=== PATIENT | male | born 1995 | race Caucasian/White ===

== ENCOUNTER 2017-04-12 13:49 | Emergency (ER) | payer BC, OTHER ==
[2017-04-12 14:07] VITALS: RESP 18
[2017-04-12 15:13] LABS: Appearance,Urine Clear (Clear); Bilirubin,Urine Negative (Negative); Glucose,Urine (UA) Negative (Negative); Ketones,Urine Negative (Negative); Leukocyte Esterase,Urine Negative (Negative); Nitrite,Urine Negative (Negative); PH, Urine 6.5 (5.0-8.0); Protein,Urine Negative (Negative); Specific Gravity,Urine 1.014 (1.001-1.035); UA Billing (MACRO vs. MICRO) CHEM; Urobilinogen,Urine <2.0 mg/dL (<2.0)
[2017-04-12] MEDS ORDERED: KETOROLAC 30 MG/ML 1 ML VIAL IM STA (15:23)
--- NOTE | 2017-04-12 15:23 | ED ---
General Adult HPI - General Chief complaint: Urogenital Stated complaint: Male /with Back Pain Time Seen by Provider: 04/12/17 15:06 Source: patient, RN notes reviewed Mode of arrival: ambulatory Limitations: no limitations - History of Present Illness Initial comments: 21-year-old male presents for evaluation of scrotal pain and low back pain. Patient denies any specific injury, he has been doing smoker the house with some moderate heavy lifting. Does not recall a specific injury. Pain is at the base of the scrotum. Bilateral. No complaints of right or left testicular pain specifically. He does have history of a varicocele requiring operation. Patient's low back pain is associated with scrotal pain. They come together and are worse with bending. No fever or chills. No discharge. No history of hernia. His last bowel movement was this morning and was normal. - Related Data Previous Rx's Medication Instructions Recorded Ibuprofen [Motrin] 600 mg PO Q8HR PRN #24 tab 04/12/17 Allergies Allergy/AdvReac Type Severity Reaction Status Date / Time No Known Allergies Allergy Verified 04/12/17 14:57 Review of Systems ROS Statement: Those systems with pertinent positive or pertinent negative responses have been documented in the HPI. ROS Other: All systems not noted in ROS Statement are negative. Past Medical History Past Medical History: No Reported History Additional Past Medical History / Comment(s): pleuresy History of Any Multi-Drug Resistant Organisms: None Reported Past Surgical History: No Surgical Hx Reported Additional Past Surgical History / Comment(s): testicular vericose vein removal Past Psychological History: No Psychological Hx Reported Smoking Status: Current every day smoker Past Alcohol Use History: Occasional Past Drug Use History: None Reported, Marijuana General Exam Limitations: no limitations General appearance: alert, in no apparent distress Head exam: Present: atraumatic, normocephalic Eye exam: Present: normal appearance, PERRL ENT exam: Present: normal exam Neck exam: Present: normal inspection. Absent: tenderness, meningismus Respiratory exam: Present: normal lung sounds bilaterally, respiratory distress Cardiovascular Exam: Present: regular rate, normal rhythm GI/Abdominal exam: Present: soft, hernia. Absent: distended, tenderness exam: Present: normal inspection. Absent: testicular tenderness, urethral discharge, scrotal swelling Extremities exam: Present: normal inspection, full ROM. Absent: tenderness Back exam: Present: normal inspection, paraspinal tenderness (Lumbosacral). Absent: muscle spasm, vertebral tenderness Neurological exam: Present: alert, oriented X3, motor sensory deficit. Absent: CN II-XII intact Psychiatric exam: Present: normal affect, normal mood Skin exam: Present: warm, dry, intact. Absent: cyanosis, diaphoretic Course Vital Signs 04/12/17 14:03 Temperature 97.4 F L Pulse Rate 74 Respiratory 18 Rate Blood Pressure 131/90 O2 Sat by Pulse 99 Oximetry Medical Decision Making - Medical Decision Making 21-year-old male with low back pain, pelvic floor pain and scrotal pain. Exam shows no findings to support patient's chief complaint. Testicle exam is unremarkable. No midline bony tenderness in the lumbosacral region. Normal gait. Normal neurologic exam. Ultrasound is obtained given the patient's history of varicocele. This is negative for enlarging varicocele, improved from previous study, no testicular inflammation or inflammation of the epididymis, no torsion. X-ray lumbosacral spine is within normal limits. Patient's symptoms likely related to pelvic floor sprain and strain. Patient will follow-up with primary care physician return to emergency department with worsening symptoms. - Lab Data Lab Results 04/12/17 Range/Units 14:51 Urine Color Yellow Urine Appearance Clear (Clear) Urine pH 6.5 (5.0-8.0) Ur Specific [place] 1.014 (1.001-1.035) Urine Protein Negative (Negative) Urine Glucose (UA) Negative (Negative) Urine Ketones Negative (Negative) Urine Blood Negative (Negative) Urine Nitrite Negative (Negative) Urine Bilirubin Negative (Negative) Urine Urobilinogen <2.0 (<2.0) mg/dL Ur Leukocyte Esterase Negative (Negative) Disposition Clinical Impression: Strain of muscle of pelvis Disposition: HOME SELF-CARE Condition: Good Instructions: Muscle Strain (ED), Groin Strain (ED) Prescriptions: Ibuprofen [Motrin] 600 mg PO Q8HR PRN #24 tab PRN Reason: Pain Referrals: Yanira Gilliam DO [Primary Care Provider] - 1-2 days Time of Disposition: 16:54
--- NOTE | 2017-04-12 16:25 | US ---
EXAMINATION TYPE: US scrotum with doppler. Grayscale and color Doppler Duplex imaging performed of tiburcio quiros scrotum. DATE OF EXAM: 04/12/2017 COMPARISON: NONE CLINICAL HISTORY: Pain. Testicle pain bilaterally. Varicocele surgery 5 years ago EXAM MEASUREMENTS: TESTICLES: Right Testicle: 3.7 x 2.6 x 3.3 cm Left Testicle: 4.4 x 2.7 x 3.0 cm EPIDIDYMIS HEAD: Right Epididymis: 1.3 cm Left Epididymis: 1.5 cm. Cystic area left epididymis = 0.2cm Doppler performed to assess for testicular vascularity; good bilateral color flow and waveforms are s een. There is no evidence of testicular torsion. Presence of hydroceles: fluid collection lateral to right testicle = 2.6cm and medial to left testic le = 1.9cm Presence of varicoceles: Vasculature measures less than 3 mm, and therefore no varicocele is noted. Findings are much improved in comparison to the prior of 01/29/2012, status post varicocele surgery. IMPRESSION: 1. Small minimally complex hydroceles. 2. No current evidence of epididymal orchitis or testicular torsion. 3. Benign 2 mm left epididymal cyst. 4. Interval surgical repair of varicoceles/varicoceles with vasculature now measuring less than 3 mm.
--- NOTE | 2017-04-12 16:41 | XR ---
EXAMINATION TYPE: XR lumbosacral spine min 4V DATE OF EXAM: 04/12/2017 COMPARISON: NONE HISTORY: Back pain TECHNIQUE: 5 views FINDINGS: Lumbar vertebra have normal spacing and alignment. Posterior elements are intact. Sacroilia c joints appear normal. IMPRESSION: Normal lumbar spine
[2017-04-12 17:14] VITALS: BP 138/70; PULSE 64; TEMP 98.3
== END 2017-04-12 17:15 | disposition home or self-care (01) ==
LOC: EC 13:49
DX: S39.013A Strain of muscle, fascia and tendon of pelvis, initial encounter (principal); F17.200 Nicotine dependence, unspecified, uncomplicated; X50.0XXA Overexertion from strenuous movement or load, initial encounter; Y92.009 Unspecified place in unspecified non-institutional (private) residence as the place of occurrence of the external cause
CPT/HCPCS: 81003; 72110; 93975; 76870; 99284; 96372; J1885